=== PATIENT | male | born 1985 | race Two or more races ===

== ENCOUNTER 2022-02-16 13:30 | Outpatient (CLI) | payer OTHER | END 2022-02-16 13:35 | disposition home or self-care (01) | LOC: PPH VACUNA 13:30 | PROVIDERS: ATTEND Emergency Medicine Pediatric Emergency Medicine | DX: Z23 Encounter for immunization (principal) ==

== ENCOUNTER 2023-02-16 | Outpatient (CLI) | payer OTHER | END 2023-02-16 00:15 | disposition home or self-care (01) | LOC: PPH VACUNA | PROVIDERS: ATTEND Emergency Medicine Pediatric Emergency Medicine | DX: Z23 Encounter for immunization (principal) ==